=== PATIENT | male | born 1975 | race African-American/Black ===

== ENCOUNTER 2018-02-18 09:50 | Emergency (ER) | payer OTHER ==
[~2018-02-18] VITALS: Ht 175.3 cm; Wt 79.5 kg
[~2018-02-18 09:50] MED LIST: PROCTOFOAM HC PR; Z.0.NO CURRENT MEDS
[2018-02-18 09:54] VITALS: BP 140/98; PULSE 94; RESP 18; TEMP 98.6; O2SAT 98
[2018-02-18] MEDS ORDERED: TOPI0.252 TOPICAL (10:13)
--- NOTE | 2018-02-18 10:14 | PD ---
HPI Chief Complaint: Skin Problem Time Seen by Provider: 09:57 Travel History International Travel<30 days: No Contact w/Intl Traveler<30days: No Traveled to known affect area: No History of Present Illness HPI 42-year-old male presents emergency department complaining of pruritic rash over his entire body ongoing for years. He states he has tried fluconazole but has not really helped. They just moved to the area. No other complaints. History Past Medical History Narrative Medical Mental health problems Social History Alcohol Use: Yes (2 BEERS PER DAY) Tobacco Use: Yes (1/2 PPD) Allergies-Medications (Allergen,Severity, Reaction): Coded Allergies: penicillin G (Unverified Allergy, Mild, SOB, 06/08/17) Reported Meds & Prescriptions Reported Meds & Active Scripts Active Topicort Topical (Desoximetasone) 0.25% Oint 1 Applic TOPICAL BID [proctofoam hc] 1 Applic IA QID Reported No Current Meds (Miscellaneous Medication) Misc Review of Systems Except as stated in HPI: all other systems reviewed are Neg Physical Exam Narrative GENERAL: Well-appearing 42-year-old man, no acute distress. SKIN: Warm and dry. Scaly skin throughout the entire biceps the upper and lower 70s. There is dark colored hyperkeratotic skin plaques over the back of the neck, and the folds of the arms. Some secondary excoriations. No other pustules pimples plaques or other abnormality. CARDIOVASCULAR: Warm and well perfused. RESPIRATORY: Normal rate and effort. MUSCULOSKELETAL: No deformities peer NEUROLOGICAL: Awake and alert. No gross deficits. Data Data Last Documented VS Vital Signs Date Time Temp Pulse Resp B/P (MAP) Pulse Ox O2 Delivery O2 Flow Rate FiO2 02/18/18 09:54 98.6 94 18 140/98 (112) 98 Orders Orders Ed Discharge Order (02/18/18 10:15) MDM Medical Decision Making Medical Screen Exam Complete: No Emergency Medical Condition: No Differential Diagnosis Eczema, psoriasis, drug effect, Hollie, other Narrative Course Medical decision making Is a well 42-year-old with pruritic skin rash times years, seems eczematous. Recommend steroids outpatient follow-up. Diagnosis Primary Impression: Eczema Referrals: [facility] call for appointment Additional Instructions: Use steroid ointment sparingly 2 times daily on areas most affected including the back and the neck in the crease of the arms. Do not apply to the face or genitals. Follow-up with his gerardo for referral to dermatology. Return to the emergency department for any new or worsening symptoms. Med/Other Pt SpecificInfo: Prescription(s) given Scripts Desoximetasone Topical (Topicort Topical) 0.25% Oint 1 APPLIC TOPICAL BID, #100 GM 0 Refills Prov: Lizandro Humphreys MD 02/18/18 Disposition: 01 DISCHARGE HOME Condition: Stable Lizandro Humphreys MD Feb 18, 2018 10:14
== END 2018-02-18 10:49 | disposition home or self-care (01) ==
LOC: NEPD 09:50
DX: L30.9 Dermatitis, unspecified (principal); F17.200 Nicotine dependence, unspecified, uncomplicated
CPT/HCPCS: 99283